=== PATIENT | male | born 1950 | race Caucasian/White ===

== ENCOUNTER 2016-07-22 14:47 | Outpatient (RCR) | payer OTHER | END 2016-08-20 09:34 | LOC: WSOH 14:47 | DX: S39.012A Strain of muscle, fascia and tendon of lower back, initial encounter (principal); W18.31XA Fall on same level due to stepping on an object, initial encounter; Y99.0 Civilian activity done for income or pay ==

== ENCOUNTER → 2016-07-22 | Outpatient (REF) | LOC: WSOH 14:50 | DX: Z01.83 Encounter for blood typing (principal) ==

== ENCOUNTER 2021-01-28 14:28 | Emergency (ER) | payer MEDICARE, OTHER ==
[~2021-01-28] VITALS: Ht 177.8 cm; Wt 120.5 kg
[2021-01-28 15:22] LABS: BASO % 0.4 % (0.0-2.0); EOS # 0.1 (0.0-0.7); EOS % 1.9 % (0-4.0); GRAN # 4.5 (1.4-6.5); GRAN % 66.7 % (42.2-75.2); LYMPH # 1.3 (1.2-3.4); LYMPH % 18.8 % (20.0-51.0); MEAN CELL VOLUME 87 fl (80.0-100.0); MEAN CORPUSCULAR HEMOGLOBIN 29 pg (27.0-31.0); MEAN CORPUSCULAR HGB CONC 33 g/dl (33.0-37.0); MEAN PLATELET VOLUME 8.8 fl (7.4-10.4); MONO # 0.8 (0.1-0.6); MONO % 11.9 % (1.7-9.3); PLATELET COUNT 187 K/mm3 (130-400); RED BLOOD COUNT 4.85 M/mm3 (4.20-5.60); REDCELL DISTRIBUTION WIDTH-CV 12.5 % (11.5-14.5)
[2021-01-28 15:37] LABS: ALANINE AMINOTRANSFERASE 24 U/L (4-49); ALBUMIN 4.4 gm/dL (3.5-5.0); ALKALINE PHOSPHATASE 74 U/L (50-136); ANION GAP 9 mmol/L (7-16); AST,SGOT 46 U/L (15-37); BILIRUBIN,TOTAL 0.7 mg/dL (0.0-1.0); BLOOD UREA NITROGEN 14 mg/dL (9-20); CALCIUM 9.1 mg/dL (8.4-10.2); CARBON DIOXIDE 24 mmol/L (22-30); CHLORIDE 103 mmol/L (98-107); CREATININE, serum 0.74 (0.66-1.25); GLUCOSE 110 mg/dL (74-106); LIPASE 108 U/L (23-300); SODIUM 136 mmol/L (137-145); TOTAL PROTEIN 8.3 gm/dL (6.4-8.2)
[2021-01-28 16:19] LABS: TROPONIN-I < 0.012 ng/mL (0.000-0.035)
[2021-01-28 16:40] LABS: COLLECTION METHOD CLEAN CATCH
[2021-01-28 16:51] LABS: PH 7 (5-8); SQUAMOUS EPITHELIAL None Seen /hpf; URINE APPEARANCE Clear; URINE BACTERIA Rare /hpf; URINE BILIRUBIN Negative (NEGATIVE); URINE BLOOD Negative (NEGATIVE); URINE COLOR Yellow; URINE GLUCOSE Negative (NEGATIVE); URINE KETONE 1+ (NEGATIVE); URINE LEUKOCYTE ESTERASE Negative (NEGATIVE); URINE NITRATE Negative (NEGATIVE); URINE PROTEIN(semi-quant) Negative (NEGATIVE); URINE RBC 0-2 /hpf; URINE UROBILINOGEN Negative (NEGATIVE)
[2021-01-28] MEDS ORDERED: PROTONIX 40MG T40 MG PO (17:25)
[2021-01-28 17:40] VITALS: BP 131/69; PULSE 56; TEMP 98.6
== END 2021-01-28 17:44 | disposition home or self-care (01) ==
LOC: COL.ER 14:28
PROVIDERS: Nurse Practitioner Primary Care
DX: K21.9 Gastro-esophageal reflux disease without esophagitis (principal)
CPT/HCPCS: J7030